=== PATIENT | female | born 1965 | race Two or more races ===

== ENCOUNTER 2018-02-23 00:12 | Emergency (ER) | payer OTHER ==
[~2018-02-23] VITALS: Ht 160 cm; Wt 63.5 kg
[~2018-02-23 00:12] MED LIST: SERT50TA PO
[2018-02-23 00:16] VITALS: BP 124/86
== END 2018-02-23 00:45 | disposition home or self-care (01) ==
LOC: ER 00:14
DX: K64.4 Residual hemorrhoidal skin tags (principal); F32.9 Major depressive disorder, single episode, unspecified; Z98.890 Other specified postprocedural states; Z88.2 Allergy status to sulfonamides
CPT/HCPCS: 99282; A4606; Z7610